=== PATIENT | male | born 1945 | race Caucasian/White ===

== ENCOUNTER → 2017-01-07 | Outpatient (CLI) | payer MEDICARE, BC ==
[2017-01-07 16:04] LABS: CHLORIDE,CL 109 mmol/L (98-110); SODIUM,NA 142 mmol/L (136-146)
== END ==
LOC: MW.CHFP 13:36
PROVIDERS: ATTEND Emergency Medicine
DX: Z01.818 Encounter for other preprocedural examination (principal); I10 Essential (primary) hypertension; R30.0 Dysuria; R94.31 Abnormal electrocardiogram [ECG] [EKG]; K62.5 Hemorrhage of anus and rectum; R42 Dizziness and giddiness; Z23 Encounter for immunization
CPT/HCPCS: 36415; 80048; 81001; 85027; 93005; 99214; G0008; 90686

== ENCOUNTER → 2017-02-11 | Outpatient (CLI) | payer MEDICARE, BC | LOC: MW.CHGS 08:00 | PROVIDERS: ATTEND Surgery | DX: K62.5 Hemorrhage of anus and rectum (principal) | CPT/HCPCS: G0463 ==

== ENCOUNTER 2017-03-06 07:22 | Day surgery (SDC) | payer MEDICARE, BC ==
--- NOTE | 2017-01-15 10:34 | PCM.PREANE ---
Preanesthetic Assessment - ANESTHESIA/TRANSFUSION/FAMILY HX Anesthesia/Transfusion History: Prior Anesthesia Family History of Anesthesia Reaction: No - PHYSICAL ASSESSMENT Height: 1.75 m Weight: 79.379 kg ASA Class: 2 - ALLERGIES Allergies/Adverse Reactions: Allergies Allergy/AdvReac Type Severity Reaction Status Date / Time No Known Allergies Allergy Verified 04/20/14 14:38 - BLOOD Blood Available: No - ANESTHESIA PLAN Preop Beta Loraine: No PreAnesthesia Questionnaire Cardiovascular History: Reports: High cholesterol, Hypertension Gastrointestinal History: Reports: Other (see below) Other Gastrointestinal History: occasional heartburn Genitourinary History: Reports: Prostate disorder Musculoskeletal History: Reports: Osteoarthritis Other Musculoskeletal History: back and hip pain Neurological History: Reports: Neuropathy, peripheral Other Neuro History: peripheral neuropathic pain Oncologic (Cancer) History: Reports: Prostate - Past Surgical History Head Surgeries/Procedures: Reports: None GI Surgical History: Reports: Colonoscopy, Hernia, inguinal Male Surgical History: Reports: Other (see below) Other Male Surgeries/Procedures: needle bx of prostate, radiaion therapy for prostate cancer - SUBSTANCE USE Smoking Status *Q: Former Smoker Recreational Drug Use History: No - HOME MEDS Home Medications: Home Meds Cholecalciferol (Vitamin D3) [Vitamin D3] 1,000 unit PO DAILY 01/13/17 [History] Fish Oil/[place]-3 Fatty Acids [Fish Oil 1,000 MG] 1,000 mg PO DAILY 01/13/17 [ History] Gabapentin [Neurontin] 3 tab PO BID 01/13/17 [History] Ibuprofen 2 tab PO QID PRN 01/13/17 [History] Lisinopril 20 mg PO DAILY 01/13/17 [History] Temazepam 15 mg PO BEDTIME PRN 01/13/17 [History] amLODIPine [Norvasc] 5 mg PO DAILY 01/13/17 [History] - CURRENT (IN HOUSE) MEDS Current Meds: Current Medications Lactated Ringer's (Ringers, Lactated) 1,000 mls @ 125 mls/hr IV ASDIRECTED B[place]LEY Sodium Chloride (Saline Flush) 10 ml FLUSH ASDIRECTED PRN PRN Reason: Keep Vein Open Sodium Chloride (Saline Flush) 2.5 ml FLUSH ASDIRECTED PRN PRN Reason: Keep Vein Open
[~2017-03-06 07:22] MED LIST: Lactated Ringers 1,000 ML IV SCH; Sodium Chloride 0.9% 10 ML Syringe FLUSH PRN; Sodium Chloride 0.9% 2.5 ML Syringe FLUSH PRN
[2017-03-06] MEDS ORDERED: Lidocaine 2% 5 ML SDV ONE (07:38)
[2017-03-06] MEDS ORDERED: Propofol 200 MG/20 ML SDV ONE (07:38)
--- NOTE | 2017-03-06 08:18 | PCM.PREANE ---
Preanesthetic Assessment - Anesthesia/Transfusion/Family Hx Anesthesia History: Prior Anesthesia Without Reaction Family History of Anesthesia Reaction: No Transfusion History: No Prior Transfusion(s) - Review of Systems General: No Symptoms Pulmonary: No Symptoms Cardiovascular: No Symptoms Neurological: No Symptoms Other: Reports: None - Physical Assessment O2 Sat by Pulse Oximetry: 98 Respiratory Rate: 16 Vital Signs: Last Vital Signs Temp 36.4 C 03/06/17 07:42 Pulse 62 03/06/17 07:42 Resp 16 03/06/17 07:42 BP 140/73 03/06/17 07:42 Pulse Ox 98 03/06/17 07:42 Height: 0 cm Weight: 77.564 kg ASA Class: 3 Mental Status: Alert & Oriented x3 Airway Class: Mallampati = 2 Dentition: Reports: Normal Dentition (grinded front teeth) Thyro-Mental Finger Breadths: 3 Mouth Opening Finger Breadths: 2 ROM/Head Extension: Limited/Partial Lungs: Clear to auscultation, Normal respiratory effort Cardiovascular: Regular Rate, Regular Rhythm - Allergies Allergies/Adverse Reactions: Allergies Allergy/AdvReac Type Severity Reaction Status Date / Time No Known Allergies Allergy Verified 04/20/14 14:38 - Blood Blood Available: No - Anesthesia Plan Pre-Op Medication Ordered: None - Acknowledgements Anesthesia Type Planned: MAC Pt an Appropriate Candidate for the Planned Anesthesia: Yes Alternatives and Risks of Anesthesia Discussed w Pt/Guardian: Yes Pt/Guardian Understands and Agrees with Anesthesia Plan: Yes PreAnesthesia Questionnaire Cardiovascular History: Reports: High cholesterol, Hypertension Respiratory History: Reports: SOB (on exertion 3-4 block, not new) Gastrointestinal History: Reports: Other (see below) Other Gastrointestinal History: occasional heartburn, h/o gastric ulcer, h/o diverticulitis Genitourinary History: Reports: Prostate disorder (cancer a year ago with external radiation), Other (see below) (creatinin 1.6 stable over past year) Musculoskeletal History: Reports: Arthritis (ankles and feet), Osteoarthritis Other Musculoskeletal History: back and hip pain Neurological History: Reports: Neuropathy, peripheral (feet) Other Neuro History: peripheral neuropathic pain Endocrine/Metabolic History: Reports: Other (see below) (elevated TSH) Oncologic (Cancer) History: Reports: Prostate - Past Surgical History Head Surgeries/Procedures: Reports: None GI Surgical History: Reports: Colonoscopy, Hernia, inguinal (bilateral) Female Surgical History: Reports: Other (see below) (prostate bx.) Male Surgical History: Reports: Other (see below) Other Male Surgeries/Procedures: needle bx of prostate, radiaion therapy for prostate cancer - SUBSTANCE USE Smoking Status *Q: Former Smoker Recreational Drug Use History: No - HOME MEDS Home Medications: Home Meds Cholecalciferol (Vitamin D3) [Vitamin D3] 1,000 unit PO DAILY 01/13/17 [History] Fish Oil/[place]-3 Fatty Acids [Fish Oil 1,000 MG] 1,000 mg PO DAILY 01/13/17 [ History] Gabapentin [Neurontin] 3 tab PO TID 01/13/17 [History] Ibuprofen 2 tab PO QID PRN 01/13/17 [History] Lisinopril 20 mg PO DAILY 01/13/17 [History] Temazepam 15 mg PO BEDTIME PRN 01/13/17 [History] amLODIPine [Norvasc] 5 mg PO DAILY 01/13/17 [History] - CURRENT (IN HOUSE) MEDS Current Meds: Current Medications Lactated Ringer's (Ringers, Lactated) 1,000 mls @ 125 mls/hr IV ASDIRECTED BENTLEY Last Admin: 03/06/17 07:41 Dose: 125 mls/hr Discontinued Medications Lactated Ringer's (Ringers, Lactated) 1,000 mls @ 125 mls/hr IV ASDIRECTED BENTLEY Lidocaine (Xylocaine-Mpf 2%) Confirm Administered Dose 5 ml .ROUTE .STK-MED ONE Stop: 03/06/17 07:39 Propofol (Diprivan 20 Ml) Confirm Administered Dose 400 mg .ROUTE .STK-MED ONE Stop: 03/06/17 07:39 Sodium Chloride (Saline Flush) 10 ml FLUSH ASDIRECTED PRN PRN Reason: Keep Vein Open Sodium Chloride (Saline Flush) 2.5 ml FLUSH ASDIRECTED PRN PRN Reason: Keep Vein Open
--- NOTE | 2017-03-06 10:00 | PCM.POSTAN ---
POST ANESTHESIA ASSESSMENT - MENTAL STATUS Mental Status: alert - RESPIRATORY Respiratory Status: respiratory rate WNL, airway patent, O2 saturation stable - CARDIOVASCULAR CV Status: pulse rate WNL, blood pressure stable - GASTROINTESTINAL GI Status: no symptoms - POST OP HYDRATION Hydration Status: adequate & stable - OBSERVATIONS Free Text/Narrative:: no anesthesia problems
[2017-03-06 10:28] VITALS: BP 134/77
--- NOTE | 2017-03-06 10:43 | PCM.OPNOTE ---
- General Post-Op/Procedure Note Date of Surgery/Procedure: 03/06/17 Operative Procedure(s): Diagnostic colonoscopy Findings: Friable tissue around the rectum, not actively bleeding. Small 1mm sessile rectal polyp. Extensive diverticulosis. Pre Op Diagnosis: Hematochezia. Post-Op Diagnosis: Diverticulosis, rectal polyp Anesthesia Technique: [facility] Primary Surgeon: Brenda Arredondo Condition: Good Free Text/Narrative:: Intake & Output 03/05/17 03/06/17 03/06/17 22:59 06:59 14:59 Intake Total 1100 Balance 1100
--- NOTE | 2017-03-06 18:13 | OR ---
SURGEON: MEGHANA LINARES MD DATE OF PROCEDURE: 03/06/2017 PREOPERATIVE DIAGNOSIS: Hematochezia. POSTOPERATIVE DIAGNOSES: Diverticulosis and rectal polyp. PROCEDURE PERFORMED: Diagnostic colonoscopy. INSTRUMENT USED: Olympus colonoscope. ANESTHESIA: MAC. EXTENT OF EXAM: To the cecum. PREPARATION: Good. LIMITATIONS: None. INDICATIONS: The patient is a 71-year-old male with a history of rectal cancer for which he underwent radiation treatment. The patient has been having hematochezia and I was asked to perform a colonoscopy to rule out any intracolonic source of bleeding. The patient and I discussed the procedure as well as expected perioperative course. We discussed the risks, including bleeding, infection, or damage to surrounding structures, including perforation. The patient verbalized understanding and wished to proceed. PROCEDURE IN DETAIL: The patient was brought to the endoscopy suite and placed in left lateral decubitus position. A time-out was completed verifying the patient's name, age, date of , allergies, and procedure to be performed. Monitored anesthesia care was induced and continuous oxygen was provided via nasal cannula throughout the procedure. After adequate sedation was achieved, a digital rectal exam was performed. This exam was within normal limits. A well lubricated colonoscope was inserted into the rectum and advanced under direct visualization to the level of the cecum. The cecum was identified by both visual and anatomic landmarks. A photograph was taken of the cecal cap as well as with retroflexing the scope within the cecum. The scope was then straightened out and fully withdrawn while examining the color, texture, anatomy, and integrity of the mucosa from the cecum to the anal canal. The patient had diffuse diverticulosis throughout his colon, but this was extensive within the descending and sigmoid colon. There was a small 1 mm sessile polyp within the rectum and this was removed using a cold biopsy forceps. It was sent to pathology and labeled as rectal polyp. The scope was then brought into the rectum and retroflexed to allow visualization of the anal canal opening. The tissue around the anal canal opening appeared friable and thin. No evidence of active bleeding was noted, but there was some minor trauma associated with insufflation and scoping. This trauma did not extend through the mucosa, but instead showed small diffuse tears throughout. The scope was then straightened out and removed from the patient. The patient tolerated the procedure well and was transferred to the recovery room in stable condition.Cecum to anus time was 18 minutes. ENDOSCOPIC DIAGNOSES: Diverticulosis, thin rectal mucosa, rectal polyp. RECOMMENDATIONS: Follow up in clinic in 2 weeks. SAL ARAUZ /[id number] MTDD
== END 2017-03-06 10:44 | disposition home or self-care (01) ==
LOC: MW.SDS 07:22
PROVIDERS: ATTEND Surgery
PROC: 0DBP8ZZ Excision of Rectum, Via Natural or Artificial Opening Endoscopic (ICD-10-PCS; principal; 2017-03-06)
DX: K62.1 Rectal polyp (principal); K57.30 Diverticulosis of large intestine without perforation or abscess without bleeding; I10 Essential (primary) hypertension; E78.00 Pure hypercholesterolemia, unspecified; M19.079 Primary osteoarthritis, unspecified ankle and foot; G62.9 Polyneuropathy, unspecified; Z85.048 Personal history of other malignant neoplasm of rectum, rectosigmoid junction, and anus; Z92.3 Personal history of irradiation; Z85.46 Personal history of malignant neoplasm of prostate; Z87.891 Personal history of nicotine dependence; Z98.890 Other specified postprocedural states; Z79.899 Other long term (current) drug therapy
CPT/HCPCS: 45380; J7120; 00810; 88305; J2704

== ENCOUNTER → 2017-03-14 | Outpatient (CLI) | payer MEDICARE, BC | LOC: MW.CHGS 08:00 | PROVIDERS: ATTEND Surgery | DX: K62.5 Hemorrhage of anus and rectum (principal) | CPT/HCPCS: G0463 ==